=== PATIENT | female | born 1950 ===

== ENCOUNTER 2018-07-19 15:41 | Outpatient (REF) | payer MEDICARE, BC, SELFPAY ==
[2018-07-19 22:14] LABS: Anion Gap 8.7 mmol/L (3-11); BUN 18 mg/dL (7-18); CO2 31.3 mmol/L (21.0-32.0); Calcium 9.9 mg/dL (8.5-10.1); Chloride 101 mmol/L (98-107); Glucose 106 mg/dL (70-100); Potassium 3.4 mmol/L (3.5-5.1); Sodium 141 mmol/L (136-145)
[2018-07-19 22:58] LABS: COMMENT (LAB VIEW ONLY) 90.42 mg/dL; Microalb ug/mg Crea 17.8 ug/mg Cr
== END 2018-07-19 16:01 ==
LOC: NCHCN 15:41
PROVIDERS: PCP Registered Nurse; Visit Provider Registered Nurse
DX: I10 Essential (primary) hypertension (principal)
CPT/HCPCS: 80048; 82043; 82570

== ENCOUNTER 2018-08-17 22:55 | Outpatient (REF) | payer MEDICARE, BC, SELFPAY ==
[2018-08-17 21:51] LABS: Anion Gap 7.9 mmol/L (3-11); BUN 17 mg/dL (7-18); CO2 31.1 mmol/L (21.0-32.0); CREATININE 0.53 mg/dL (0.55-1.02); Chloride 108 mmol/L (98-107); Glucose 60 mg/dL (70-100); Potassium 3.6 mmol/L (3.5-5.1); Sodium 147 mmol/L (136-145)
[2018-08-17 22:04] LABS: HCT 47.3 % (36.0-46.0); HGB 14.9 g/dL (12.0-15.5); Mean Corp. HGB Concentration 31.5 g/dL (32.0-36.0); Mean Corpuscular Hemoglobin 31.8 pg (27.0-33.0); Mean Corpuscular Volume 101.1 fL (80-95); Mean Platelet Volume 13.6 fL (8.0-11.0); RBC 4.68 m/cumm (4.00-5.20); RBC Distribution Width 15.8 % (11.7-14.6); White Blood Cell Count 3.76 k/cumm (4.4-10.8)
[2018-08-17 23:30] LABS: Platelet Count 80 x1000/uL (130-400)
== END 2018-08-17 23:15 ==
LOC: NCHCN 22:55
PROVIDERS: PCP Registered Nurse; Visit Provider Registered Nurse
DX: I10 Essential (primary) hypertension (principal); R06.02 Shortness of breath; R06.00 Dyspnea, unspecified
CPT/HCPCS: 80048; 85027

== ENCOUNTER 2018-08-23 13:03 | Outpatient (REF) | payer MEDICARE, BC, SELFPAY ==
[2018-08-23 21:55] LABS: ALT 58 U/L (12-78); AST 71 U/L (15-37); Alkaline Phosphatase 183 U/L (46-116); Anion Gap 7.8 mmol/L (3-11); BUN 14 mg/dL (7-18); Bilirubin, Total 0.9 mg/dL (0.2-1.0); CO2 29.2 mmol/L (21.0-32.0); CREATININE 0.41 mg/dL (0.55-1.02); Calcium 9.3 mg/dL (8.5-10.1); Chloride 104 mmol/L (98-107); Glucose 83 mg/dL (70-100); NT-proBNP 58 pg/mL; Sodium 141 mmol/L (136-145); Total Protein 6.3 g/dL (6.4-8.2)
== END 2018-08-23 13:23 ==
LOC: NCHCN 13:03
PROVIDERS: PCP Registered Nurse; Visit Provider Registered Nurse
DX: I10 Essential (primary) hypertension (principal); K74.69 Other cirrhosis of liver; R16.0 Hepatomegaly, not elsewhere classified; I77.6 Arteritis, unspecified; R06.02 Shortness of breath
CPT/HCPCS: 80053; 83880